=== PATIENT | male | born 1955 | race Caucasian/White ===

== ENCOUNTER 2021-10-25 05:23 | Day surgery (SDC) | payer MEDICARE, MEDICAID ==
[2021-10-18 12:14] LABS: BASOPHILS % (AUTO) 0.8 % (0-1); EOSINOPHILS # (AUTO) 0.1 X10'3 (0-0.9); EOSINOPHILS % (AUTO) 1.5 % (0-6); LYMPHOCYTES # (AUTO) 1.8 X10'3 (1.1-4.8); LYMPHOCYTES % (AUTO) 35.8 % (21-51); MEAN CORPUSCULAR HGB CONC 33.8 g/dL (33.0-36.5); MEAN CORPUSCULAR VOLUME 91.7 FL (78-98); MEAN PLATELET VOLUME 8.1 FL (7.4-10.4); MONOCYTES # (AUTO) 0.7 X10'3 (0-0.9); MONOCYTES % (AUTO) 13.2 % (2-12); NEUTROPHILS # (AUTO) 2.4 X10'3 (1.8-7.7); NEUTROPHILS % (AUTO) 48.7 % (42-75); PRE OP HEMOGLOBIN 14.9 g/dL (14.0-17.9); PRE OP PLATELET COUNT 225 X10'3 (140-440)
[2021-10-18 12:26] LABS: ALBUMIN 3.4 G/DL (3.4-5.0); ALKALINE PHOSPHATASE 101 IU/L (46-116); BLOOD UREA NITROGEN 13 MG/DL (7-18); BUN/CREATININE RATIO 11.4 (5.4-32.0); CALCIUM 8.1 MG/DL (8.5-10.1); CHLORIDE 102 MMOL/L (99-107); CREATININE 1.14 MG/DL (0.60-1.10); PRE OP ALT 23 U/L (30-65); PRE OP ANION GAP 12 (8-16); PRE OP AST 26 U/L (10-37); PRE OP BILIRUB, TOTAL 0.6 MG/DL (0.0-1.0); PRE OP GLUCOSE 69 MG/DL (70-104); PRE OP POTASSIUM 3.7 MMOL/L (3.4-5.1); PRE OP SODIUM 136 MMOL/L (135-145); TOTAL CARBON DIOXIDE 21.9 MMOL/L (24-32); TOTAL PROTEIN 6.8 G/DL (6.4-8.2); eGFR 64 ML/MIN
[~2021-10-25] VITALS: Ht 177.8 cm; Wt 75.2 kg
[2021-10-25] VITALS (8 sets, daily range): BP systolic 138–160; BP diastolic 88–110
[~2021-10-25 05:23] MED LIST: DOCU50CA13 PO; GABA-530 PO; HYDR-3686 PO; LORA10TA7 PO; OMEP20CA16 PO; ringers solution, lactated 500 ML IV ONE
[2021-10-25] MEDS ORDERED: famotidine 20mg tablet PO ONE (05:30)
[2021-10-25] MEDS ORDERED: clindamycin-Cleocin 900mg/D5W 50 ML IV ONE (05:30)
[2021-10-25] MEDS ORDERED: LIDOcaine 1% (10mg/ml) 2ml vial ONE (05:34)
[2021-10-25] MEDS ORDERED: BUPIVAcaine/PF 2.5mg/ml (0.25%) 10ml vial ONE (06:57)
--- NOTE | 2021-10-25 07:11 | NUR ---
IV FLUID LR WAS ADMINISTERED ORDERED. IV BAG WOULD NOT SCAN. MED CHECKS DONE PER PROTOCOL AND LR INFUSING ORDERED.
[2021-10-25] MEDS ORDERED: midazolam 1 mg/ML 2ml injection ONE (07:21)
[2021-10-25] MEDS ORDERED: fentaNYL/PF 50MCG/1 ML 2ML syringe ONE (07:21)
[2021-10-25] MEDS ORDERED: proCHLORperazine 10 MG/2 ml inj IV PRN (07:25)
[2021-10-25] MEDS ORDERED: morphine 2 MG/ML inj. syringe IV PRN (07:25)
[2021-10-25] MEDS ORDERED: morphine 4 MG/ML inj SYRINge IV PRN (07:25)
[2021-10-25] MEDS ORDERED: ondansetron/PF 4mg/2ml inj IV PRN (07:25)
[2021-10-25] MEDS ORDERED: meperidine/PF 25mg/ml syringe IV PRN ×3 (07:25)
[2021-10-25] MEDS ORDERED: ringers solution, lacted 1,000 ML IV SCH (07:25)
[2021-10-25] MEDS ORDERED: sevoflurane 250ml liquid IH ONE (07:31)
[2021-10-25] MEDS ORDERED: propofol inj 20 ML IV ONE (08:10)
--- NOTE | 2021-10-25 08:12 | NUR ---
Received from OR via [facility], accompanied by Anesthesiologist and report given by JAYDEN Anesthesiologist. PATIENT WAKING UP, NO S/S OF PAIN, V/S WNL, SCD ON, 20G TO LAC, BILATERAL WRIST DRESSING CDI. ICE AND ELEVATED RUE.
--- NOTE | 2021-10-25 08:12 | NUR ---
Received from OR via [facility], accompanied by Anesthesiologist and report given by JAYDEN Anesthesiologist. PATIENT WAKING UP, NO S/S OF PAIN, V/S WNL, SCD ON, 20G TO LAC, BILATERAL WRIST DRESSING CDI. ICE AND ELEVATED BILATERAL UE. Addendum: 10/25/21 at 0824 by Kuldeep Joshi RN Amended: Links added.
--- NOTE | 2021-10-25 09:15 | NUR ---
PATIENT A&OX4, DENIES PAIN, V/S WNL, 20G TO LAC D/C, BILATERAL WRIST DRESSING CDI. INSTRUCTED TO USE ICE AND ELEVATED BUE. I HAVE REVIEWED D/C INSTRUCTIONS WITH PATIENT and they have verbalized understanding patient d/c home with all belongings and family gave transport home. Addendum: 10/25/21 at 0923 by Kuldeep Joshi RN Amended: Links added.
== END 2021-10-25 09:12 | disposition home or self-care (01) ==
LOC: PAS 05:23
PROVIDERS: ATTEND Orthopaedic Surgery Hand Surgery
DX: M65.342 Trigger finger, left ring finger (principal); M65.311 Trigger thumb, right thumb; M72.0 Palmar fascial fibromatosis [Dupuytren]; K21.9 Gastro-esophageal reflux disease without esophagitis; Z79.899 Other long term (current) drug therapy; Z88.0 Allergy status to penicillin; Z98.890 Other specified postprocedural states; Z87.891 Personal history of nicotine dependence; Z72.89 Other problems related to lifestyle; Z96.653 Presence of artificial knee joint, bilateral; Z80.9 Family history of malignant neoplasm, unspecified; Z81.8 Family history of other mental and behavioral disorders
CPT/HCPCS: 26055; 26121; 36415; 80053; 82948; 85025; 93005; A6222; J2250; J2704; J3010; J3490; J7030; J7120; Z7506; Z7512; A4215; A4618; A6449; A7000